=== PATIENT | female | born 1945 | race Caucasian/White ===

== ENCOUNTER → 2018-01-18 | Outpatient (CLI) | payer MEDICARE ==
[2018-01-18 14:20] LABS: BASO # 0.1 (0.02-0.10); EOS # 0.2 (0.04-0.40); EOS % 2.7 % (1.0-5.0); HEMATOCRIT 38.8 % (37.0-47.0); HEMOGLOBIN 12.3 g/dL (12.5-16.0); LYMPH# 1.6 (1.50-4.00); MEAN CELL VOLUME 90 fl (78-100); MEAN CORPUSCULAR HEMOGLOBIN 29 pg (27-31); MEAN CORPUSCULAR HGB CONC 32 g/dL (33-37); MEAN PLATELET VOLUME 8.8 fl (7.4-10.4); MONO # 0.7 (0.20-0.80); NEU # 3.5 (1.40-6.50); PLATELET COUNT 371 K/mm3 (130-400); RED CELL DISTRIBUTION WIDTH 16.3 % (11.5-14.5)
[2018-01-18 14:41] LABS: ALBUMIN 3.9 g/dL (3.5-5.0); TOTAL PROTEIN 6.8 g/dL (6.3-8.2)
[2018-01-18 14:46] LABS: BUN/CREATININE RATIO 28.9 (6.0-26.0); CALCIUM 9.2 mg/dL (8.4-10.2); POTASSIUM 4.1 mmol/L (3.6-5.0); TOTAL BILIRUBIN 0.3 mg/dL (0.2-1.3)
== END ==
LOC: LAB 14:02
PROVIDERS: Nurse Practitioner Family
DX: I10 Essential (primary) hypertension (principal); R73.09 Other abnormal glucose; E78.2 Mixed hyperlipidemia; M81.0 Age-related osteoporosis without current pathological fracture; J45.20 Mild intermittent asthma, uncomplicated; Z88.6 Allergy status to analgesic agent; Z88.1 Allergy status to other antibiotic agents; Z88.0 Allergy status to penicillin; Z88.2 Allergy status to sulfonamides

== ENCOUNTER → 2018-02-27 | Outpatient (CLI) | payer MEDICARE | LOC: RAD 14:15 | DX: M47.812 Spondylosis without myelopathy or radiculopathy, cervical region (principal); L40.59 Other psoriatic arthropathy ==

== ENCOUNTER → 2018-04-02 | Outpatient (CLI) | payer MEDICARE | LOC: RAD 12:00 | DX: M50.21 Other cervical disc displacement, high cervical region (principal); M53.82 Other specified dorsopathies, cervical region ==

== ENCOUNTER → 2019-03-11 | Outpatient (CLI) | payer MEDICARE ==
[2019-03-11 15:20] LABS: BASO # 0.1 (0.02-0.10); EOS # 0.2 (0.04-0.40); EOS % 2.8 % (1.0-5.0); HEMATOCRIT 30.9 % (37.0-47.0); LYMPH# 1.2 (1.50-4.00); MEAN CELL VOLUME 80 fl (78-100); MONO # 0.5 (0.20-0.80); NEU # 5.6 (1.40-6.50); PLATELET COUNT 439 K/mm3 (130-400); RED BLOOD COUNT 3.88 M/mm3 (4.10-5.30); WHITE BLOOD COUNT 7.6 K/mm3 (4.8-10.8)
[2019-03-11 15:23] LABS: MEAN CORPUSCULAR HEMOGLOBIN 23 pg (27-31); MEAN CORPUSCULAR HGB CONC 29 g/dL (33-37); RED CELL DISTRIBUTION WIDTH 21.1 % (11.5-14.5)
[2019-03-11 16:12] LABS: ALBUMIN 4.2 g/dL (3.5-5.0); CALCIUM 9.4 mg/dL (8.4-10.2); POTASSIUM 3.8 mmol/L (3.6-5.0); TOTAL BILIRUBIN 0.5 mg/dL (0.2-1.3); TOTAL PROTEIN 7.1 g/dL (6.3-8.2)
== END ==
LOC: LAB 14:33
PROVIDERS: Family Medicine
DX: Z01.419 Encounter for gynecological examination (general) (routine) without abnormal findings (principal); R73.03 Prediabetes; E56.9 Vitamin deficiency, unspecified; R53.83 Other fatigue; E78.5 Hyperlipidemia, unspecified

== ENCOUNTER → 2019-08-01 | Outpatient (CLI) | payer MEDICARE | LOC: RAD 13:00 | DX: M70.62 Trochanteric bursitis, left hip (principal); M70.61 Trochanteric bursitis, right hip; M70.71 Other bursitis of hip, right hip; N85.9 Noninflammatory disorder of uterus, unspecified ==

== ENCOUNTER → 2020-03-25 | Outpatient (CLI) | payer MEDICARE ==
[2020-03-25 11:15] LABS: POTASSIUM 3.8 mmol/L (3.5-5.1)
[2020-03-25 11:16] LABS: ALBUMIN 3.9 g/dL (3.4-4.8)
[2020-03-25 11:17] LABS: CALCIUM 9.2 mg/dL (8.3-10.5)
[2020-03-25 11:18] LABS: TOTAL PROTEIN 6.9 g/dL (6.2-8.1)
[2020-03-25 11:20] LABS: TOTAL BILIRUBIN 0.5 mg/dL (0.2-1.2)
[2020-03-25 11:31] LABS: BASO # 0.1 (0.02-0.10); EOS # 0.4 (0.04-0.40); EOS % 5.7 % (1.0-5.0); HEMATOCRIT 25.8 % (37.0-47.0); MEAN CELL VOLUME 72 fl (78-100); MEAN PLATELET VOLUME 9.1 fl (7.4-10.4); MONO # 0.6 (0.20-0.80); NEU # 4.6 (1.40-6.50); PLATELET COUNT 354 K/mm3 (130-400); RED BLOOD COUNT 3.57 M/mm3 (4.10-5.30); WHITE BLOOD COUNT 6.7 K/mm3 (4.8-10.8)
[2020-03-25 11:40] LABS: HEMOGLOBIN 6.6 g/dL (12.5-16.0); MEAN CORPUSCULAR HEMOGLOBIN 19 pg (27-31); MEAN CORPUSCULAR HGB CONC 26 g/dL (33-37)
== END ==
LOC: LAB 10:42
PROVIDERS: Family Medicine
DX: Z01.419 Encounter for gynecological examination (general) (routine) without abnormal findings (principal); E78.5 Hyperlipidemia, unspecified; E55.9 Vitamin D deficiency, unspecified; R73.09 Other abnormal glucose

== ENCOUNTER → 2020-09-17 | Outpatient (CLI) | payer MEDICARE ==
[2020-09-17 16:15] LABS: BASO # 0.1 (0.02-0.10); EOS # 0.2 (0.04-0.40); HEMATOCRIT 39.7 % (37.0-47.0); HEMOGLOBIN 11.8 g/dL (12.5-16.0); LYMPH# 1.4 (1.50-4.00); MEAN CELL VOLUME 78 fl (78-100); MEAN CORPUSCULAR HGB CONC 30 g/dL (33-37); MEAN PLATELET VOLUME 9.4 fl (7.4-10.4); MONO # 0.8 (0.20-0.80); NEU # 5.5 (1.40-6.50); PLATELET COUNT 304 K/mm3 (130-400); RED BLOOD COUNT 5.07 M/mm3 (4.10-5.30)
[2020-09-17 16:18] LABS: MEAN CORPUSCULAR HEMOGLOBIN 23 pg (27-31); RED CELL DISTRIBUTION WIDTH 18.1 % (11.5-14.5)
[2020-09-17 16:32] LABS: ALBUMIN 4.2 g/dL (3.4-4.8); POTASSIUM 3.5 mmol/L (3.5-5.1)
[2020-09-17 16:33] LABS: CALCIUM 9.7 mg/dL (8.3-10.5)
[2020-09-17 16:34] LABS: TOTAL PROTEIN 7.8 g/dL (6.2-8.1)
[2020-09-17 16:36] LABS: TOTAL BILIRUBIN 0.4 mg/dL (0.2-1.2)
== END ==
LOC: LAB 15:57
PROVIDERS: Physician Assistant
DX: J45.20 Mild intermittent asthma, uncomplicated (principal); D63.8 Anemia in other chronic diseases classified elsewhere; L40.59 Other psoriatic arthropathy; J30.2 Other seasonal allergic rhinitis

== ENCOUNTER → 2021-08-03 | Outpatient (CLI) | payer MEDICARE ==
[2021-08-03 13:10] LABS: BASO # 0.05 (0.02-0.10); EOS % 1.9 % (1.0-5.0); HEMATOCRIT 42.9 % (37.0-47.0); HEMOGLOBIN 13.6 g/dL (12.5-16.0); LYMPH# 1.12 (1.50-4.00); MEAN CELL VOLUME 94 fl (78-100); MEAN CORPUSCULAR HEMOGLOBIN 30 pg (27-31); MEAN CORPUSCULAR HGB CONC 32 g/dL (33-37); MEAN PLATELET VOLUME 9.2 fl (7.4-10.4); MONO # 0.47 (0.20-0.80); PLATELET COUNT 259 K/mm3 (130-400); RED BLOOD COUNT 4.56 M/mm3 (4.10-5.30); WHITE BLOOD COUNT 5.3 K/mm3 (4.8-10.8)
[2021-08-03 13:22] LABS: POTASSIUM 3.5 mmol/L (3.5-5.1)
[2021-08-03 13:23] LABS: CALCIUM 10.1 mg/dL (8.3-10.5)
[2021-08-03 13:26] LABS: TOTAL BILIRUBIN 0.5 mg/dL (0.2-1.2)
== END ==
LOC: LAB 12:40
PROVIDERS: Family Medicine
DX: Z00.00 Encounter for general adult medical examination without abnormal findings (principal); E78.5 Hyperlipidemia, unspecified; E61.1 Iron deficiency

== ENCOUNTER 2022-02-18 12:40 | Emergency (ER) | payer MEDICARE ==
[~2022-02-18] VITALS: Ht 152.4 cm; Wt 70.5 kg
[2022-02-18] MEDS ORDERED: HCTZ 25MG25 MG PO (12:57)
[2022-02-18] MEDS ORDERED: SINGULAIR 110 MG/TAB PO (12:57)
[2022-02-18] MEDS ORDERED: LORAZEPAM1 M1 PO (12:57)
[2022-02-18] MEDS ORDERED: PRILOSEC OTC20 MG PO (12:59)
[2022-02-18 13:26] LABS: BASO # 0.06 K/mm3 (0.02-0.10); EOS # 0.15 K/mm3 (0.04-0.40); EOS % 1.9 % (1.0-5.0); HEMATOCRIT 41.6 % (37.0-47.0); LYMPH# 1.54 K/mm3 (1.50-4.00); MEAN CELL VOLUME 92 fl (78-100); MEAN CORPUSCULAR HEMOGLOBIN 29 pg (27-31); MEAN CORPUSCULAR HGB CONC 31 g/dL (33-37); MEAN PLATELET VOLUME 8.6 fl (7.4-10.4); MONO # 0.69 K/mm3 (0.20-0.80); NEU # 5.42 K/mm3 (1.40-6.50); PLATELET COUNT 351 K/mm3 (130-400); RED BLOOD COUNT 4.54 M/mm3 (4.10-5.30); RED CELL DISTRIBUTION WIDTH 13.7 % (11.5-14.5); WHITE BLOOD COUNT 7.9 K/mm3 (4.8-10.8)
[2022-02-18 13:29] LABS: ALBUMIN 4.1 g/dL (3.4-4.8); POTASSIUM 3.3 mmol/L (3.5-5.1); SODIUM 138 mmol/L (136-145)
[2022-02-18 13:30] LABS: CALCIUM 9.6 mg/dL (8.3-10.5)
[2022-02-18 13:31] LABS: GLUCOSE 115 mg/dL (65-105); TOTAL PROTEIN 6.9 g/dL (6.2-8.1)
[2022-02-18 13:32] LABS: CARBON DIOXIDE 26 mmol/L (23-31)
[2022-02-18 13:33] LABS: TOTAL BILIRUBIN 0.4 mg/dL (0.2-1.2)
[2022-02-18 13:37] LABS: AST-SGOT 23 U/L (5-34)
[2022-02-18 13:38] LABS: ALT/SGPT 21 U/L (0-55)
[2022-02-18 13:44] LABS: URINE APPEARANCE CLEAR; URINE BILIRUBIN NEGATIVE (NEGATIVE); URINE BLOOD NEGATIVE (NEGATIVE); URINE COLOR YELLOW; URINE GLUCOSE NEGATIVE (NEGATIVE); URINE KETONE NEGATIVE (NEGATIVE); URINE LEUKOCYTE ESTERASE TRACE (NEGATIVE); URINE NITRATE NEGATIVE (NEGATIVE); URINE PROTEIN(semi-quant) TRACE (NEGATIVE); URINE UROBILINOGEN NORMAL (NORMAL)
[2022-02-18 13:45] LABS: URINE MUCUS PRESENT (NOT PRESENT)
[2022-02-18 13:46] LABS: TROPONIN-I < 0.030 ng/mL (<0.030)
[2022-02-18] MEDS ORDERED: GOOD NEIGHBOR M25 M1 PO (15:22)
[2022-02-18] MEDS ORDERED: ZESTRIL5 M1 PO (15:22)
[2022-02-18] MEDS ORDERED: CYCLOBENZ5 MG PO (15:22)
[2022-02-18 15:24] VITALS: BP 167/96
== END 2022-02-18 15:30 | disposition home or self-care (01) ==
LOC: ED 12:40
PROVIDERS: Nurse Practitioner
DX: I10 Essential (primary) hypertension (principal); M62.838 Other muscle spasm; E87.6 Hypokalemia; H81.09 Meniere's disease, unspecified ear; R29.6 Repeated falls
CPT/HCPCS: J1885; J2360; J2405

== ENCOUNTER → 2022-04-01 | Outpatient (CLI) | payer MEDICARE ==
[~2022-04-01] MED LIST: CYCLOBENZ5 MG PO; GOOD NEIGHBOR M25 M1 PO; HCTZ 25MG25 MG PO; LORAZEPAM1 M1 PO; PRILOSEC OTC20 MG PO; SINGULAIR 110 MG/TAB PO; ZESTRIL5 M1 PO
== END ==
LOC: RAD 03-30 14:00 → VAS 12:48 → RAD 13:00
DX: G45.9 Transient cerebral ischemic attack, unspecified (principal)

== ENCOUNTER 2022-06-27 14:42 | Outpatient (RCR) | payer MEDICARE | END 2022-07-20 | disposition home or self-care (01) | LOC: PT | DX: R42 Dizziness and giddiness (principal) ==

== ENCOUNTER → 2023-09-13 | Day surgery (SDC) | payer MEDICARE ==
[~2023-09-13] MED LIST changes: +ASPIRIN 32325 MG/TAB PO; +BAYER BACK & B1 EACH PO; +CEPHALEXIN500 M1 PO; +LIPITOR 10M10 MG/TAB PO; +MOTION SICKNESS25 M5 PO; +TOPROL XL 25MG25 MG PO
== END | disposition home or self-care (01) ==
LOC: MSO 07:27
DX: H25.811 Combined forms of age-related cataract, right eye (principal); Z87.891 Personal history of nicotine dependence
CPT/HCPCS: 00142; J0171; J2250; V2632

== ENCOUNTER → 2024-08-14 | Outpatient (CLI) | payer MEDICARE ==
[2024-08-14 12:55] LABS: BASO # 0.04 K/mm3 (0.02-0.10); EOS # 0.11 K/mm3 (0.04-0.40); EOS % 1.3 % (1.0-5.0); HEMATOCRIT 41.1 % (37.0-47.0); HEMOGLOBIN 13.8 g/dL (12.5-16.0); LYMPH# 1.26 K/mm3 (1.50-4.00); MEAN CELL VOLUME 97 fl (78-100); MEAN CORPUSCULAR HEMOGLOBIN 33 pg (27-31); MEAN CORPUSCULAR HGB CONC 34 g/dL (33-37); MEAN PLATELET VOLUME 8.5 fl (7.4-10.4); MONO # 0.57 K/mm3 (0.20-0.80); NEU # 6.27 K/mm3 (1.40-6.50); PLATELET COUNT 329 K/mm3 (130-400); RED BLOOD COUNT 4.24 M/mm3 (4.10-5.30); RED CELL DISTRIBUTION WIDTH 14.5 % (11.5-14.5); WHITE BLOOD COUNT 8.3 K/mm3 (4.8-10.8)
[2024-08-14 13:11] LABS: ALBUMIN 4.1 g/dL (3.4-4.8)
[2024-08-14 13:12] LABS: CALCIUM 9.5 mg/dL (8.3-10.5)
[2024-08-14 13:14] LABS: TOTAL PROTEIN 6.6 g/dL (6.2-8.1)
[2024-08-14 13:15] LABS: TOTAL BILIRUBIN 0.7 mg/dL (0.2-1.2)
== END ==
LOC: LAB 12:42
PROVIDERS: Family Medicine
DX: I10 Essential (primary) hypertension (principal); E78.5 Hyperlipidemia, unspecified; R73.03 Prediabetes; E55.9 Vitamin D deficiency, unspecified

== ENCOUNTER → 2024-12-24 | Outpatient (CLI) | payer MEDICARE | LOC: RAD 13:30 | DX: M17.12 Unilateral primary osteoarthritis, left knee (principal) ==

== ENCOUNTER → 2025-01-15 | Outpatient (CLI) | payer MEDICARE | LOC: RAD 09:56 | DX: M17.12 Unilateral primary osteoarthritis, left knee (principal) ==